=== PATIENT | male | born 1950 | race Caucasian/White ===

== ENCOUNTER 2020-03-22 20:36 | Inpatient (IN) | payer MEDICARE, OTHER ==
[2020-03-22] MEDS ORDERED: Sodium Chloride 0.9% 10 ML Syringe FLUSH PRN (20:50)
[2020-03-22] MEDS ORDERED: Acetaminophen 500 MG Tab PO ONE (21:09)
[2020-03-22] MEDS ORDERED: Sodium Chloride 0.9% 1,000 ML IV ONE (21:09)
[2020-03-22 21:33] LABS: ANION GAP 11.9 mmol/L (5-15); CHLORIDE,CL 104 mmol/L (98-115); SODIUM,NA 140 mmol/L (136-145)
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
[2020-03-22] MEDS ORDERED: Ibuprofen 600 MG Tab PO ONE (21:48)
[2020-03-22] MEDS ORDERED: Acetaminophen 325 MG Tab PO PRN (22:45)
[2020-03-23] MEDS: Acetaminophen 325 MG Tab PO SCH ×3 (00:20→06:30)
[2020-03-23] MEDS: Ibuprofen 600 MG Tab PO SCH ×4 (00:21→16:20)
--- NOTE | 2020-03-23 08:17 | CR ---
[id number] RAD/RAD Chest PA And Lateral EXAM: FRONTAL AND LATERAL CHEST INDICATION: Fever. COMPARISON: February 14, 2016. DISCUSSION: Mild hyperinflation suggests underlying COPD. Mild basilar scarring or atelectasis with no definite infiltrates. Normal heart size. Prior sternotomy. No effusions. Small granuloma left mid to lower lung. IMPRESSION: 1. No acute findings. Mark Lira MD 03/23/20 0815 Thank you for allowing us to participate in the care of your patient.
[2020-03-23] MEDS ORDERED: Escitalopram 10 MG Tab PO SCH (10:30)
[2020-03-23] MEDS ORDERED: Losartan 50 MG Tab PO SCH (10:30)
[2020-03-23] MEDS ORDERED: Metoprolol Tartrate 25 MG Tab PO SCH ×2 (11:00→21:00)
[2020-03-23] MEDS ORDERED: Cefepime 2 GM in Sodium Chloride 0.9% 50 ML IV SCH ×2 (11:00→19:00)
[2020-03-23] MEDS ORDERED: Sodium Chloride 0.9% 100 ML IV SCH (11:15)
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
[2020-03-23] MEDS ORDERED: Sodium Chloride 0.9% 1,000 ML ONE (12:02)
[2020-03-23] MEDS ORDERED: Sodium Chloride 0.9% 1,000 ML IV SCH (12:30)
[2020-03-23] MEDS: Acetaminophen 325 MG Tab PO PRN ×2 (13:05→17:55)
[2020-03-23] MEDS ORDERED: Ondansetron 4 MG/2 ML SDV IVPUSH PRN (15:12)
[2020-03-23 16:53] VITALS: BP 122/63; PULSE 70
--- NOTE | 2020-03-23 17:49 | PCM.DCSUM1 ---
Discharge Summary - Discharge Data Discharge Date: 03/23/20 Discharge Disposition: DC/Tfer to Acute Hospital 02 Condition: Fair - Referral to Home Health Primary Care Physician: Corrina Geronimo NP - Discharge Diagnosis/Problem(s) (1) Bacteremia SNOMED Code(s): 6277007 ICD Code: R78.81 - BACTEREMIA Status: Acute (2) H/O prostate biopsy SNOMED Code(s): 013958616, 217156492 ICD Code: Z98.890 - OTHER SPECIFIED POSTPROCEDURAL STATES Status: Acute - Patient Summary/Data Hospital Course: Admission date:03/23/20 Discharge date: 03/23/20 Admission diagnoses: - febrile illness - S/P prostate biopsy Discharge Diagnoses: - bacteremia - s/p prostate biopsy Hospitalization course: This is a 69 year old male who was admitted to the [facility] 03/23/20 for fever. Patient is S/P prostate biopsy on 03/21/20. He was discharged home on a 2 day course of ciprofloxacin. On the evening of 03/23/20 patient developed a fever of 103 degrees at home. He presented to the ED. Initial work-up with normal WBC, normal renal and electrolytes. UA done and negative. lactic acid normal. Chest x-ray with no acute findings. Temp 103.8. blood cultures done and patient was admitted for observation. On 03/23/20 patient was doing well with no concerns. Blood cultures however returned with gram negative rods. patient was started on IV cefepime. around 1100 patient had temperature elevation of 103 which remained elevated despite tylenol or ibuprofen management. VS otherwise stable. around 1500 on 03/23/20 patient noted increased dizziness/lightheadedness and new incontinence. Provider was notified. Patient remained febrile but vital signs remained stable. Given change/worsening in patient status and with further discussion with family/patient, patient was considered for transfer to [place] for further monitoring/management. Consult placed through [facility] with agreement for transfer to higher level of care. Disposition - Transfer to [facility]. - Blood culture sensitivity report pending at discharge. - Patient Instructions Diet: Regular Diet as Tolerated - Discharge Plan *PRESCRIPTION DRUG MONITORING PROGRAM REVIEWED*: Not Applicable *COPY OF PRESCRIPTION DRUG MONITORING REPORT IN PATIENT JAQUAN: Not Applicable Home Medications: Home Meds Aspirin [Halfprin] 81 mg PO BRK 02/14/16 [History] Metoprolol Tartrate 12.5 mg PO QPM #30 tablet 02/15/16 [Rx] Ciprofloxacin [Ciprofloxacin HCl] 500 mg PO BID 03/22/20 [History] Escitalopram [Lexapro] 10 mg PO DAILY 03/22/20 [History] Losartan Potassium 100 mg PO DAILY 03/22/20 [History] Magnesium Oxide 250 mg PO DAILY 03/22/20 [History] Rosuvastatin [Crestor] 10 mg PO BEDTIME 03/22/20 [History] Triamcinolone Acetonide [Triamcinolone Acetonide 0.1% Oint] 1 applic TOP BID PRN 03/22/20 [History] metroNIDAZOLE [Metronidazole] 45 gm TP DAILY 03/22/20 [History] Forms: ED Department Discharge Referrals: Corrina Geronimo PROJECT PROGRAM MANAGER [Primary Care Provider] - - Discharge Summary/Plan Comment DC Time >30 min.: No - General Info Date of Service: 03/23/20 - Review of Systems General: Reports: Fever, Fatigue, Malaise, Chills, Appetite HEENT: Reports: No Symptoms Pulmonary: Denies: Shortness of Breath, Cough, Sputum Cardiovascular: Denies: Chest Pain, Palpitations, Dyspnea on Exertion, Edema Gastrointestinal: Reports: Nausea. Denies: Vomiting Genitourinary: Reports: Dysuria, Burning, Incontinence. Denies: Hematuria, Flank Pain Musculoskeletal: Reports: No Symptoms Skin: Reports: No Symptoms Neurological: Reports: Dizziness, Headache Psychiatric: Reports: No Symptoms - Patient Data Vitals - Most Recent: Last Vital Signs Temp 100.7 F H 03/23/20 16:52 Pulse 70 03/23/20 16:52 Resp 28 H 03/23/20 16:52 BP 122/63 03/23/20 16:52 Pulse Ox 97 03/23/20 16:52 Weight - Most Recent: 235 lb 4 oz I&O - Last 24 hours: Intake & Output 03/23/20 03/23/20 03/23/20 06:59 14:59 22:59 Intake Total 200 800 Balance 200 800 Lab Results - Last 24 hrs: Laboratory Results - last 24 hr 03/22/20 03/22/20 03/22/20 Range/Units 21:00 21:00 21:00 WBC 6.01 (5.00-10.00) 10^3/uL RBC 4.38 L (4.50-6.00) 10^6/uL Hgb 14.4 (13.0-17.0) g/dL Hct 43.2 (40.0-52.0) % MCV 98.6 H D (82.0-92.0) fL MCH 32.9 H (27.0-31.0) pg MCHC 33.3 (32.0-36.0) g/dL RDW 12.1 (11.5-14.5) % Plt Count 141 L (150-400) 10^3/uL MPV 9.8 (7.4-10.4) fL Immature Gran % (Auto) 0.2 (0.0-5.0) % Neut % (Auto) 79.9 H (50.0-70.0) % Lymph % (Auto) 10.1 L (20.0-40.0) % [place] % (Auto) 8.0 (2.0-8.0) % Eos % (Auto) 1.3 (1.0-3.0) % Baso % (Auto) 0.5 (0.0-1.0) % Neut # (Auto) 4.80 (2.50-7.00) 10^3/uL Lymph # (Auto) 0.61 L (1.00-4.00) 10^3/uL [place] # (Auto) 0.48 (0.10-0.80) 10^3/uL Eos # (Auto) 0.08 L (0.10-0.30) 10^3/uL Baso # (Auto) 0.03 (0.00-0.10) 10^3/uL Immature Gran # (Auto) 0.01 (0.00-0.50) 10^3/uL Sodium 140 (136-145) mmol/L Potassium 4.1 (3.3-5.3) mmol/L Chloride 104 (98-115) mmol/L Carbon Dioxide 28.2 (21.0-32.0) mmol/L Anion Gap 11.9 (5-15) mmol/L BUN 10 (6-25) mg/dL Creatinine 0.99 (0.51-1.17) mg/dL Est Cr Clr Drug Dosing 77.30 mL/min Estimated GFR (MDRD) > 60 mL/min Glucose 140 H (75 - 99) mg/dL Lactic Acid (0.4-2.0) mmol/L Calcium 9.3 (8.7-10.3) mg/dL Total Bilirubin 1.1 H (0.2-1.0) mg/dL AST 19 (15-37) U/L ALT 31 (12-78) U/L Alkaline Phosphatase 77 (46-116) IU/L Total Protein 7.0 (6.4-8.2) g/dL Albumin 3.56 (3.00-4.80) g/dL Specimen Type Urinvoid Urine Color Yellow (YELLOW) Urine Appearance Clear (CLEAR) Urine pH 7.5 (5.0-9.0) Ur Specific [place] 1.020 (1.005-1.030) Urine Protein Negative (NEGATIVE) mg/dL Urine Glucose (UA) Negative (NEGATIVE) mg/dL Urine Ketones Negative (NEGATIVE) mg/dL Urine Occult Blood Moderate H (NEGATIVE) Urine Nitrite Negative (NEGATIVE) Urine Bilirubin Negative (NEGATIVE) Urine Urobilinogen 1.0 (0.2-1.0) E.U./dL Ur Leukocyte Esterase Negative (NEGATIVE) Urine RBC 5-10 H (0-5) /HPF Urine WBC 0-5 (0-5) /HPF Ur Epithelial Cells Rare /LPF Urine Bacteria Rare (NONE TO FEW) /HPF SARS CoV-2 RNA Rapid ANSLEY (NEGATIVE) 03/22/20 03/23/20 03/23/20 Range/Units 22:46 12:05 12:10 WBC 7.82 (5.00-10.00) 10^3/uL RBC 4.42 L (4.50-6.00) 10^6/uL Hgb 14.3 (13.0-17.0) g/dL Hct 43.4 (40.0-52.0) % MCV 98.2 H (82.0-92.0) fL MCH 32.4 H (27.0-31.0) pg MCHC 32.9 (32.0-36.0) g/dL RDW 12.5 (11.5-14.5) % Plt Count 118 L (150-400) 10^3/uL MPV 10.4 (7.4-10.4) fL Immature Gran % (Auto) 0.3 (0.0-5.0) % Neut % (Auto) 87.5 H (50.0-70.0) % Lymph % (Auto) 4.7 L (20.0-40.0) % [place] % (Auto) 6.6 (2.0-8.0) % Eos % (Auto) 0.6 L (1.0-3.0) % Baso % (Auto) 0.3 (0.0-1.0) % Neut # (Auto) 6.84 (2.50-7.00) 10^3/uL Lymph # (Auto) 0.37 L (1.00-4.00) 10^3/uL [place] # (Auto) 0.52 (0.10-0.80) 10^3/uL Eos # (Auto) 0.05 L (0.10-0.30) 10^3/uL Baso # (Auto) 0.02 (0.00-0.10) 10^3/uL Immature Gran # (Auto) 0.02 (0.00-0.50) 10^3/uL Sodium (136-145) mmol/L Potassium (3.3-5.3) mmol/L Chloride (98-115) mmol/L Carbon Dioxide (21.0-32.0) mmol/L Anion Gap (5-15) mmol/L BUN (6-25) mg/dL Creatinine (0.51-1.17) mg/dL Est Cr Clr Drug Dosing mL/min Estimated GFR (MDRD) mL/min Glucose (75 - 99) mg/dL Lactic Acid 1.7 (0.4-2.0) mmol/L Calcium (8.7-10.3) mg/dL Total Bilirubin (0.2-1.0) mg/dL AST (15-37) U/L ALT (12-78) U/L Alkaline Phosphatase (46-116) IU/L Total Protein (6.4-8.2) g/dL Albumin (3.00-4.80) g/dL Specimen Type Urine Color (YELLOW) Urine Appearance (CLEAR) Urine pH (5.0-9.0) Ur Specific [place] (1.005-1.030) Urine Protein (NEGATIVE) mg/dL Urine Glucose (UA) (NEGATIVE) mg/dL Urine Ketones (NEGATIVE) mg/dL Urine Occult Blood (NEGATIVE) Urine Nitrite (NEGATIVE) Urine Bilirubin (NEGATIVE) Urine Urobilinogen (0.2-1.0) E.U./dL Ur Leukocyte Esterase (NEGATIVE) Urine RBC (0-5) /HPF Urine WBC (0-5) /HPF Ur Epithelial Cells /LPF Urine Bacteria (NONE TO FEW) /HPF SARS CoV-2 RNA Rapid ANSLEY Negative (NEGATIVE) SANNA Results - Last 24 hrs: Microbiology 03/22/20 21:10 Aerobic Blood Culture - Final Blood - Venous - Lab Draw 03/22/20 21:00 Aerobic Blood Culture - Final Blood - Venous Anaerobic Blood Culture - Final Med Orders - Current: Current Medications Acetaminophen (Tylenol) 650 mg PO Q4H PRN PRN Reason: Fever Last Admin: 03/23/20 13:05 Dose: 650 mg Documented by: Aspirin (Halfprin) 81 mg PO 0800 PENDING SALE TO [facility] Escitalopram Oxalate (Lexapro) 10 mg PO DAILY PENDING SALE TO [facility] Last Admin: 03/23/20 12:59 Dose: 10 mg Documented by: Sodium Chloride (Normal Saline) 1,000 mls @ 125 mls/hr IV ASDIRECTED PENDING SALE TO [facility] Last Admin: 03/23/20 12:30 Dose: 125 mls/hr Documented by: Cefepime HCl 2 gm/ Sodium (Chloride) 50 mls @ 100 mls/hr IV Q8H PENDING SALE TO [facility] Ibuprofen (Motrin) 600 mg PO Q6H PENDING SALE TO [facility] Last Admin: 03/23/20 16:20 Dose: 600 mg Documented by: Losartan Potassium (Cozaar) 100 mg PO DAILY PENDING SALE TO [facility] Last Admin: 03/23/20 12:56 Dose: 100 mg Documented by: Metoprolol Tartrate (Lopressor) 12.5 mg PO DAILY PENDING SALE TO [facility] Last Admin: 03/23/20 12:57 Dose: 12.5 mg Documented by: Ondansetron HCl (Zofran) 4 mg IVPUSH Q6H PRN PRN Reason: Nausea/Vomiting Last Admin: 03/23/20 15:32 Dose: 4 mg Documented by: Rosuvastatin Calcium (Crestor) 10 mg PO BEDTIME PENDING SALE TO [facility] Sodium Chloride (Saline Flush) 10 ml FLUSH Q8HR PRN PRN Reason: keep vein open Discontinued Medications Acetaminophen (Tylenol Extra Strength) 1,000 mg PO ONETIME ONE Stop: 03/22/20 21:10 Last Admin: 03/22/20 21:12 Dose: 1,000 mg Documented by: Acetaminophen (Tylenol) 650 mg PO Q4H PRN PRN Reason: analgesia/fever Acetaminophen (Tylenol) 650 mg PO Q4H PENDING SALE TO [facility] Last Admin: 03/23/20 06:30 Dose: Not Given Documented by: Sodium Chloride (Normal Saline) 1,000 mls @ 999 mls/hr IV .BOLUS ONE Stop: 03/22/20 22:09 Last Admin: 03/22/20 21:16 Dose: 999 mls/hr Documented by: Cefepime HCl 2 gm/ Sodium (Chloride) 50 mls @ 100 mls/hr IV Q12H PENDING SALE TO [facility] Last Admin: 03/23/20 11:14 Dose: 100 mls/hr Documented by: Sodium Chloride (Normal Saline) 100 mls @ 125 mls/hr IV ASDIRECTED PENDING SALE TO [facility] Ibuprofen (Motrin) 800 mg PO ONETIME ONE Stop: 03/22/20 21:49 Last Admin: 03/22/20 21:59 Dose: 600 mg Documented by: Metoprolol Tartrate (Lopressor) 12.5 mg PO QPM YAYA - Exam General: Reports: Alert, Mild Distress Neck: Reports: Supple, No JVD Lungs: Reports: Clear to Auscultation, Normal Respiratory Effort Cardiovascular: Reports: Regular Rate, Regular Rhythm GI/Abdominal Exam: Normal Bowel Sounds, Soft, Non-Tender (Male) Exam: Deferred Back Exam: Reports: Normal Inspection Skin: Reports: Other (flushed) Psy/Mental Status: Reports: Alert Physical Findings Comments:: patient lying in bed in mild distress. He responds to voice but is ill appearing. He is flushed and hot to touch.
[2020-03-23] MEDS ORDERED: Rosuvastatin 10 MG Tab PO SCH (21:00)
[2020-03-24] MEDS ORDERED: Aspirin 81 MG Tab.EC PO SCH (08:00)
== END 2020-03-23 17:35 | DRG 872 ==
LOC: KA.ED 20:36 → KA.MS 22:45 → UNDOADMOB 22:52 → KA.MS 22:52 → OBSVTOIN 03-23 12:01
PROVIDERS: ADMIT Physician Assistant; ATTEND Nurse Practitioner Family
DX: A49.9 Bacterial infection, unspecified (principal); R78.81 Bacteremia; H91.90 Unspecified hearing loss, unspecified ear; H54.7 Unspecified visual loss; E78.00 Pure hypercholesterolemia, unspecified; I10 Essential (primary) hypertension; Z95.1 Presence of aortocoronary bypass graft; M19.90 Unspecified osteoarthritis, unspecified site; Z98.890 Other specified postprocedural states; F32.9 Major depressive disorder, single episode, unspecified; F41.9 Anxiety disorder, unspecified; Z97.4 Presence of external hearing-aid; Z79.82 Long term (current) use of aspirin; Z86.010 Personal history of colon polyps; Z89.021 Acquired absence of right finger(s); Z90.89 Acquired absence of other organs; Z20.828 Contact with and (suspected) exposure to other viral communicable diseases; Z79.899 Other long term (current) drug therapy
CPT/HCPCS: 36415; 71046; 80053; 81001; 83605; 84145; 85025; 87040; 87077; 87186; 96374; 99284-25; A9270-GY; G0378; J0692; J2405; J7030; U0002

== ENCOUNTER 2023-08-15 18:26 | Emergency (ER) | payer MEDICARE, BC ==
[2023-08-15 19:04] LABS: BASOPHILS ABSOLUTE AUTO 0.02 10^3/uL (0.00-0.10); BASOPHILS PERCENT AUTO 0.4 % (0.0-1.0); EOSINOPHILS PERCENT AUTO 2.2 % (1.0-3.0); HEMATOCRIT 37.7 % (40.0-52.0); HEMOGLOBIN 12.9 g/dL (13.0-17.0); IMMATURE GRAN ABSOLUTE AUTO 0.01 10^3/uL (0.00-0.50); IMMATURE GRAN PERCENT AUTO 0.2 % (0.0-5.0); LYMPHOCYTES ABSOLUTE AUTO 0.38 10^3/uL (1.00-4.00); LYMPHOCYTES PERCENT AUTO 8.2 % (20.0-40.0); MEAN CORPUSCULAR HEMOGLOBIN 33.4 pg (27.0-31.0); MEAN CORPUSCULAR HGB CONC 34.2 g/dL (32.0-36.0); MEAN CORPUSCULAR VOLUME 97.7 fL (82.0-92.0); MEAN PLATELET VOLUME 9.5 fL (7.4-10.4); MONOCYTES ABSOLUTE AUTO 0.73 10^3/uL (0.10-0.80); MONOCYTES PERCENT AUTO 15.8 % (2.0-8.0); NEUTROPHILS ABSOLUTE AUTO 3.38 10^3/uL (2.50-7.00); NEUTROPHILS PERCENT AUTO 73.2 % (50.0-70.0); PLATELET COUNT,PLT 169 10^3/uL (150-400); RED BLOOD CELL COUNT 3.86 10^6/uL (4.50-6.00); RED CELL DISTRIBUTION WIDTH 12.6 % (11.5-14.5); WHITE BLOOD CELL COUNT,WBC 4.62 10^3/uL (5.00-10.00)
[2023-08-15 19:12] LABS: BILIRUBIN,URINE NEGATIVE (NEGATIVE); COLOR,URINE YELLOW (YELLOW); GLUCOSE,URINE NEGATIVE (NEGATIVE); KETONES,URINE NEGATIVE (NEGATIVE); LEUKOCYTE ESTERASE,URINE SMALL (NEGATIVE); NITRITE,URINE NEGATIVE (NEGATIVE); OCCULT BLOOD,URINE TRACE-LYSED (NEGATIVE); PROTEIN,URINE NEGATIVE (NEGATIVE)
[2023-08-15 19:21] LABS: ALBUMIN 2.94 g/dL (3.40-5.00); ANION GAP 12.3 mmol/L (5-15); BILIRUBIN TOTAL 0.6 mg/dL (0.2-1.0); C-REACTIVE PROTEIN 11.14 mg/dL (0.00-0.50); CALCIUM 9.2 mg/dL (8.7-10.3); CARBON DIOXIDE,CO2 27.3 mmol/L (21.0-32.0); CREATININE 1.04 mg/dL (0.51-1.17); EST CRCL DRUG DOSING (CG) 71.49 mL/min; POTASSIUM,K 3.6 mmol/L (3.5-5.1)
[2023-08-15 19:25] LABS: BACTERIA,URINE RARE /HPF (NONE TO FEW); EPITHELIAL CELLS,URINE RARE /LPF; RBC,URINE 0-5 /HPF (0-5)
[2023-08-15 19:26] LABS: APPEARANCE,URINE CLEAR (CLEAR)
[2023-08-15] MEDS: cefTRIAXone 2 GM Vial IVPUSH ONE (19:57)
[2023-08-15 20:21] VITALS: BP 118/72; PULSE 78
== END 2023-08-15 20:15 | disposition home or self-care (01) ==
LOC: KA.ED 18:26
DX: N39.0 Urinary tract infection, site not specified (principal); I10 Essential (primary) hypertension; E78.00 Pure hypercholesterolemia, unspecified; Z88.6 Allergy status to analgesic agent; Z79.82 Long term (current) use of aspirin; Z79.899 Other long term (current) drug therapy; Z95.1 Presence of aortocoronary bypass graft
CPT/HCPCS: 36415; 80053; 81001; 83605; 85025; 86140; 87040; 87086; 96374; 99283-25; J0696